=== PATIENT | male | born 1960 | race Caucasian/White ===

== ENCOUNTER 2025-10-13 21:39 | Emergency (ER) | payer OTHER, SELFPAY ==
[2025-10-13 21:43] VITALS: BP 117/74
[2025-10-13 21:45] LABS: Glucose - Point of Care 61 mg/dl (70-99)
[2025-10-13 22:04] VITALS: BP 93/44
[2025-10-13 22:05] LABS: Hematocrit 34.4 % (39.0-52.0); Hemoglobin 12.0 g/dL (13.0-18.0); Mean Corp Hgb Conc. 34.9 g/dL (33.0-37.0); Mean Corpuscular Volume 105.8 fL (80.0-94.0); Nucleated Red Blood Cells % 0.4 % (-); Platelet Count 148 10^3/uL (130-400); Red Cell Dist. Width 14.8 % (11.5-14.5)
[2025-10-13 22:10] VITALS: BP 108/52
[2025-10-13 22:14] LABS: INR 3.34; PT 34.1 Sec (11.4-14.6)
[2025-10-13 22:15] LABS: APTT 54.2 Sec (23.4-35.0)
[2025-10-13 22:17] LABS: Ammonia 54 umol/L (9-30)
[2025-10-13 22:30] VITALS: BP 105/63
[2025-10-13 22:40] LABS: ALT (SGPT) 243 U/L (0-50); AST (SGOT) 1086 U/L (17-59); Albumin 3.0 g/dl (3.5-5.0); Alkaline Phosphatase 253 U/L (38-126); Blood Urea Nitrogen 25 mg/dl (9-20); Calcium 8.2 mg/dl (8.4-10.2); Carbon Dioxide 23 mmol/L (22-30); Chloride 91 mmol/L (98-107); Glucose 74 mg/dl (70-99); Lipase 887 U/L (23-300); Potassium 4.8 mmol/L (3.5-5.1); Sodium 126 mmol/L (135-145); Total Protein 6.6 g/dl (6.3-8.2); eGFR 19.35
--- NOTE | 2025-10-13 22:44 | ED.GENMED ---
History of Present Illness
<DO Ora Romo Last Filed: 10/14/25 00:29>
General
Chief Complaint: Abdominal Symptoms
Time Seen by Provider: 10/13/25 21:57
<Gini Mccarthy PA-C - Last Filed: 10/15/25 06:28>
History of Present Illness
History of Present Illness:
Jeovany is 65-year-old male with past medical history of alcoholic cirrhosis who presents via EMS after his son found him more disoriented than usual this afternoon. Entire medical history is a bit unclear son reports that he is sometimes jaundice
but believes he may be more jaundiced than usual today. Sees them daily but the lights are usually off. Patient had an episode of visual hallucinations seeing ants crawling on the wall. No loss of consciousness. Reports several falls recently.
Past History
<DO Ora Romo Last Filed: 10/14/25 00:29>
Past History
ED Past Medical History: HTN
ED Past Surgical History: Orthopedic
Social History
Tobacco: Non-smoker
Alcohol: Daily
Drug: None
Personal:
Living: with family
Employment: Employed
Phy Exam
<Gini Mccarthy PA-C - Last Filed: 10/15/25 06:28>
General Physical Exam
General Presentation: no apparent distress
General Skin: warm, dry and other (Jaundice)
General Habitus: normal, obese and poor hygiene
General Mental: alert and confused
General Hydration: appears well hydrated
ENT Exam
ENT Exam: EOMI, pharynx normal, neck supple, normocephalic and other (Scleral icterus)
Eye Exam
Eye Exam: PERRL, cornea clear and conjunctiva normal
Cardiovascular Exam
Cardiovascular Exam: regular rate/rhythm, no edema, no murmur and normal peripheral pulses
Pulmonary Exam
Pulmonary Exam: lungs clear, no respiratory distress, no rales, no crackles, no rhonchi, no stridor, no wheezing and no cough
Gastrointestinal Exam
Gastrointestinal Exam: normal bowel sounds, non tender, soft, no organomegaly, no pulsatile mass and non distended
Neurological Exam
Neurological Exam: alert, oriented x3, no motor deficits and speech normal
Musculoskeletal Exam
Musculoskeletal Exam: full ROM and no edema
Skin Exam
Skin Exam: normal color, warm/dry, no rash and no petechia
Psychiatric Exam
Psychiatric Exam: normal mood/affect
Course
<Ananth Carroll, DO - Last Filed: 10/14/25 00:29>
Orders/Labs/Results
Orders:
Orders
10/13/25 21:49
Alcohol Urgent
Ammonia Urgent
Complete Blood Count/With Diff Urgent
Comprehensive Metabolic Panel Urgent
Direct Bilirubin Urgent
Comment: ADD ON
Lipase Urgent
PTT Urgent
Prothrombin Time Urgent
10/13/25 21:50
EKG [Electrocardiogram (*1)] Urgent
Reason for Study: Abdominal Pain
EKG- Treatment ONCE
10/13/25 22:15
Add On- LAB Urgent
Tests Added?: direct bili
10/13/25 22:22
CT Head W/o Iv Contrast Urgent
Comment:
Reason For Exam: altered mental status
10/13/25 22:23
CT Abd/pel Without Iv Or Oral Urgent
Comment: abnormal labs
Reason For Exam: altered mental status, jaundice
10/13/25 22:37
Type+Screen Urgent
BBK Wristband Number:
10/13/25 23:33
Dextrose 50%-Water [Dextrose 50% Syringe] 12.5 grams IV NOW STA
10/13/25 23:35
Dextrose 50%-Water [Dextrose 50% Syringe] 25 grams .ROUTE .STK-MED ONE
10/14/25 00:24
Levetiracetam Injectable [Keppra] 500 mg IV NOW STA
Abnormal Lab Results
10/13/25 10/13/25 10/14/25
21:43 21:49 01:31
RBC 3.25 L 10^6/uL
(4.70-6.10)
Hgb 12.0 L g/dL
(13.0-18.0)
Hct 34.4 L %
(39.0-52.0)
MCV 105.8 H fL
(80.0-94.0)
MCH 36.9 H pg
(27.0-31.0)
RDW 14.8 H %
(11.5-14.5)
MPV 11.4 H fL
(7.4-10.4)
Absolute Lymphs (auto) 0.5 L 10^3/uL
(1.2-3.4)
Immature Gran % 0.8 H %
(0-0.5)
Neutrophils % 78.7 H %
(42.2-75.2)
Lymphocytes % 9.4 L %
(20.5-51.1)
Monocytes % 10.9 H %
(1.7-9.3)
PT 34.1 H Sec
(11.4-14.6)
APTT 54.2 H Sec
(23.4-35.0)
Sodium 126 L mmol/L
(135-145)
Chloride 91 L mmol/L
(98-107)
BUN 25 H mg/dl
(9-20)
Creatinine 3.4 H mg/dL
(0.7-1.3)
Calcium 8.2 L mg/dl
(8.4-10.2)
Total Bilirubin 17.8 H mg/dl
(0.2-1.3)
Direct Bilirubin 15.3 H mg/dl
(0.0-0.4)
AST 1086 H* U/L
(17-59)
ALT 243 H U/L
(0-50)
Alkaline Phosphatase 253 H U/L
(38-126)
Ammonia 54 H umol/L
(9-30)
Albumin 3.0 L g/dl
(3.5-5.0)
Lipase 887 H U/L
(23-300)
POC Glucose 61 L mg/dl 105 H mg/dl
(70-99) (70-99)
10/13/25 21:49
10/13/25 21:49
Vital Signs
Initial and Last Documented VS:
Initial Vital Signs
Temp Pulse Resp Pulse Ox
36.5 C 100 20 95
10/13/25 21:41 10/13/25 21:41 10/13/25 21:41 10/13/25 21:41
Last Documented Vital Signs
Temp Pulse Resp BP Pulse Ox
36.5 C 97 17 102/52 95
10/13/25 21:41 10/14/25 01:00 10/14/25 01:00 10/14/25 01:00 10/14/25 01:00
<Gini Mccarthy PA-C - Last Filed: 10/15/25 06:28>
Orders/Labs/Results
Orders:
Orders
10/13/25 21:49
Alcohol Urgent
Ammonia Urgent
Complete Blood Count/With Diff Urgent
Comprehensive Metabolic Panel Urgent
Direct Bilirubin Urgent
Comment: ADD ON
Lipase Urgent
PTT Urgent
Prothrombin Time Urgent
10/13/25 21:50
EKG [Electrocardiogram (*1)] Urgent
Reason for Study: Abdominal Pain
EKG- Treatment ONCE
10/13/25 22:15
Add On- LAB Urgent
Tests Added?: direct bili
10/13/25 22:22
CT Head W/o Iv Contrast Urgent
Comment:
Reason For Exam: altered mental status
10/13/25 22:23
CT Abd/pel Without Iv Or Oral Urgent
Comment: abnormal labs
Reason For Exam: altered mental status, jaundice
10/13/25 22:37
Type+Screen Urgent
BBK Wristband Number:
10/13/25 23:33
Dextrose 50%-Water [Dextrose 50% Syringe] 12.5 grams IV NOW STA
10/13/25 23:35
Dextrose 50%-Water [Dextrose 50% Syringe] 25 grams .ROUTE .STK-MED ONE
10/14/25 00:24
Levetiracetam Injectable [Keppra] 500 mg IV NOW STA
Abnormal Lab Results
10/13/25 10/13/25 10/14/25
21:43 21:49 01:31
RBC 3.25 L 10^6/uL
(4.70-6.10)
Hgb 12.0 L g/dL
(13.0-18.0)
Hct 34.4 L %
(39.0-52.0)
MCV 105.8 H fL
(80.0-94.0)
MCH 36.9 H pg
(27.0-31.0)
RDW 14.8 H %
(11.5-14.5)
MPV 11.4 H fL
(7.4-10.4)
Absolute Lymphs (auto) 0.5 L 10^3/uL
(1.2-3.4)
Immature Gran % 0.8 H %
(0-0.5)
Neutrophils % 78.7 H %
(42.2-75.2)
Lymphocytes % 9.4 L %
(20.5-51.1)
Monocytes % 10.9 H %
(1.7-9.3)
PT 34.1 H Sec
(11.4-14.6)
APTT 54.2 H Sec
(23.4-35.0)
Sodium 126 L mmol/L
(135-145)
Chloride 91 L mmol/L
(98-107)
BUN 25 H mg/dl
(9-20)
Creatinine 3.4 H mg/dL
(0.7-1.3)
Calcium 8.2 L mg/dl
(8.4-10.2)
Total Bilirubin 17.8 H mg/dl
(0.2-1.3)
Direct Bilirubin 15.3 H mg/dl
(0.0-0.4)
AST 1086 H* U/L
(17-59)
ALT 243 H U/L
(0-50)
Alkaline Phosphatase 253 H U/L
(38-126)
Ammonia 54 H umol/L
(9-30)
Albumin 3.0 L g/dl
(3.5-5.0)
Lipase 887 H U/L
(23-300)
POC Glucose 61 L mg/dl 105 H mg/dl
(70-99) (70-99)
10/13/25 21:49
10/13/25 21:49
Vital Signs
Initial and Last Documented VS:
Initial Vital Signs
Temp Pulse Resp Pulse Ox
36.5 C 100 20 95
10/13/25 21:41 10/13/25 21:41 10/13/25 21:41 10/13/25 21:41
Last Documented Vital Signs
Temp Pulse Resp BP Pulse Ox
36.5 C 97 17 102/52 95
10/13/25 21:41 10/14/25 01:00 10/14/25 01:00 10/14/25 01:00 10/14/25 01:00
<Gini Mccarthy PA-C - Last Filed: 10/15/25 06:28>
MDM/Problems Addressed
Differential Diagnosis Includes:
On initial exam patient is somewhat confused and slow to respond to questions. Son reports that this is worse than usual. CBC resulted with hemoglobin of 12. No leukocytosis. Hyponatremic to 126. Creatinine 3.4 GFR of 19. LFTs elevated with a T.
bili 17.8 D bili 15.3 AST 1086 ammonia 54. INR 3.3 All baseline labs unknown. MELD 43. Alcohol 0 reports last drink was [address] abdomen pelvis obtained and negative for any acute pathology. Chronic L2 compression fracture patient is nontender on exam. Also shows chronic liver disease with small amount of ascites. No IV contrast was used due to creatinine elevation. No
concern for any hemorrhage at this point, responsive to IVF bolus.
CT head obtained due to encephalopathy and shows a small right sided acute on chronic subdural with minimal midline shift. Laura ordered. Discussed with Dr. Rob (neurosurgery) who requests patient be transferred for to [facility]
for treatment. [facility] transfer center was called and I discussed case with Dr. Gabriel accepted the patient to the trauma service. He will go to the ER on arrival.
HR 90-100. EKG NSR with prolonged qTC. Blood pressure was borderline low with systolic blood pressures in the 90s and maps between 60 and 65. Given a 1 L normal saline bolus with improvement in BP and HR. Blood sugar found to be 61 on arrival and
half amp of D50 given with improvement.
Updated patient's son Isaac ([phone]) on transfer. He is in agreement with the plan.
<Ananth Carroll DO - Last Filed: 10/14/25 00:29>
*Pulse Oximetry
SaO2: 93
Oxygen Mode of Delivery: Room air
<Gini Mccarthy PA-C - Last Filed: 10/15/25 06:28>
*Pulse Oximetry
Patient hypoxic: no
*Critical Care Note
Total Time (30-74mins, 75-104mins- exclusive of procedures): Not Applicable
ED Attending Note
<Ananth Carroll DO - Last Filed: 10/14/25 00:29>
ED Attending Note
Patient seen and examined by attending physician: Yes
I performed the substantive portion of visit, reviewed & personally made and approve the management plan that is documented in note by myself or AVEL.: Yes
ED Attending Note:
Note:
CHIEF COMPLAINT(S)
Yellowing of eyes and skin (jaundice), and vomiting.
HISTORY OF PRESENT ILLNESS
The patient is a 65-year-old male presenting with jaundice, which began a couple of days ago. He reports yellowing of the eyes, with no previous history of jaundice or liver disease such as cirrhosis. The patient is also experiencing vomiting but
denies awareness of blood in the vomitus. Upon examination, dry blood was noted on the patients chin, which may have resulted from vomiting. He denies having any current pain. The patient�s alcohol use was queried, but specifics of recent
consumption were not detailed. To further evaluate the symptoms, plans to perform imaging studies of the abdomen and head were discussed, and the intention to admit the patient for further monitoring and treatment was conveyed.
REVIEW OF SYSTEMS
- Gastrointestinal: Yellowing of the eyes and skin, vomiting without currently known hematemesis.
- Neurological: No current pain reported.
PHYSICAL EXAM
General: Alert, Moderate acute distress.
Skin: Warm, dry, with jaundice.
Head: Normocephalic, atraumatic.
Neck: Supple, trachea midline.
Ears, nose, mouth, and throat: Oral mucosa moist, some dry blood on chin and shirt, likely from vomiting.
Cardiovascular: Normal peripheral perfusion, no edema.
Respiratory: Respirations are non-labored.
Gastrointestinal: Abdomen nondistended.
Back: Normal range of motion, normal alignment.
Musculoskeletal: Normal range of motion, normal strength.
Neurological: Alert and oriented to person, place, time, and situation, no focal neurological deficit observed.
Psychiatric: Cooperative, appropriate mood & affect.
PROBLEM LIST
Acute Problems:
- Jaundice
- Vomiting with suspected hematemesis
PLAN
- Perform imaging studies, including a CT scan of the head and abdominal imaging, to assess for potential causes of jaundice and vomiting.
- Admit the patient for observation, further diagnostic evaluations, and management.
DIFFERENTIAL DIAGNOSIS
The Differential Diagnosis includes, in no particular order and is not limited to:
- Acute liver failure
- Hepatitis
- Gallstones
- Pancreatitis
- Alcoholic liver disease
- Hemolytic anemia
- Biliary obstruction
- Drug-induced liver injury
- Viral infection
- Gastrointestinal bleeding
-
Portions of this chart may have been created with voice recognition software.� Occasional wrong word or��sound alike� substitutions may have occurred due to the inherent limitations of voice recognition software.
Discharge Plan
Departure
Patient Disposition: [facility]
Date of Disposition: 10/14/25
Time of Disposition: 00:45
Discharge Problem:
Acute subdural hematoma, Alcoholic cirrhosis, Painless jaundice, Altered mental status, Hyponatremia, Elevated creatine kinase
Referrals:
UNKNOWN - PT DOES,NOT KNOW [Unknown Provider]
Hospital Transfer
Other hospital: [facility]
I certify that the patient requires transfer: Yes
Discussed case with accepting physician: Harvey
Reason for transfer: higher level of care and specialties available
Interventions
Interventions:
*Risk Screen - Suicide Last Done: 10/13/25 22:09
*General Assessment Last Done: 10/13/25 22:09
*Neglect/Abuse Screening Last Done: 10/13/25 22:09
*ED COVID-19 Vaccine History Last Done: 10/13/25 22:09
*ED Influenza Vaccine History Last Done: 10/13/25 22:09
[facility] Fall Risk Assessment Tool Last Done: 10/13/25 21:39
*Nursing Disposition Last Done: 10/14/25 01:27
[facility] Assessment Last Done: 10/13/25 22:46
Discharge Date and Time
Discharge Date/Time: 10/14/25 02:26
Print Language: [id number]
[2025-10-13 23:00] VITALS: BP 95/46
[2025-10-13 23:36] VITALS: BP 91/56
[2025-10-13] MEDS: DEXTROSE 50% SYRINGE 12.5 GRAMS IV (23:37)
[2025-10-13 23:57] LABS: Glucose - Point of Care 98 mg/dl (70-99)
[2025-10-14] VITALS: BP 105/49
[2025-10-14 00:30] VITALS: BP 88/54
[2025-10-14 00:36] VITALS: BP 104/55
[2025-10-14] MEDS: KEPPRA 500 MG IV (00:55)
[2025-10-14 01:00] VITALS: BP 102/52
[2025-10-14 01:33] LABS: Glucose - Point of Care 105 mg/dl (70-99)
== END 2025-10-14 02:26 | disposition short-term general hospital (02) ==
LOC: EMR 21:39
PROVIDERS: Emergency Medicine; EMERGENCY PHYSICIAN Student in an Organized Health Care Education/Training Program; FAMILY PHYSICIAN Family Medicine
DX: S06.5X0A Traumatic subdural hemorrhage without loss of consciousness, initial encounter (principal); X58.XXXA Exposure to other specified factors, initial encounter; K70.31 Alcoholic cirrhosis of liver with ascites; I10 Essential (primary) hypertension; E87.1 Hypo-osmolality and hyponatremia
CPT/HCPCS: 96374; 96375; 99284; 70450; 74176; 80053; 82077; 82140; 82248; 82962; 83690; 85025; 85610; 85730; 86850; 86900; 86901; 93005